=== PATIENT | male | born 1955 | race Caucasian/White ===

== ENCOUNTER 2024-02-09 09:10 | Emergency (ER) | payer BC ==
[~2024-02-09] VITALS: Ht 175.3 cm; Wt 95.7 kg
[2024-02-09 09:56] LABS: BASOPHILS % (AUTO) 0.2 % (0.0-2.0); EOSINOPHILS # (AUTO) 0.1 K/uL (0.0-0.7); HEMATOCRIT 44 % (39-51); HEMOGLOBIN 15.2 g/dL (13.5-17.5); LYMPHOCYTES # (AUTO) 1.4 K/uL (0.8-4.8); LYMPHOCYTES % (AUTO) 17.6 % (20.0-44.0); MEAN CORPUSCULAR HEMOGLOBIN 35 PG (26.0-33.0); MEAN CORPUSCULAR HGB CONC 35 g/dl (31.0-36.0); MEAN CORPUSCULAR VOLUME 100 fL (80-96); MONOCYTES # (AUTO) 0.7 K/uL (0.1-1.30); MONOCYTES % (AUTO) 9.1 % (2.0-12.0); NEUTROPHILS # (AUTO) 5.8 K/uL (1.8-8.9); NEUTROPHILS % (AUTO) 72.1 % (43.0-81.0); PLATELET COUNT (AUTO) 220 K/uL (150-450); RED BLOOD CELL COUNT(AUTO) 4.36 MIL/uL (4.5-6.0); RED CELL DISTRIBUTION WIDTH 12.7 % (11.5-15.0)
[2024-02-09 10:07] LABS: CALCIUM, SERUM 9.8 mg/dL (8.5-10.1); CREATININE 1.3 mg/dL (0.6-1.3); POTASSIUM 3.3 mmol/L (3.5-5.1)
[2024-02-09 10:13] LABS: ALBUMIN 3.5 g/dL (3.4-5.0); BILIRUBIN,DIRECT 0.2 mg/dL (0.0-0.2); BILIRUBIN,TOTAL 0.8 mg/dL (0.2-1.0); TOTAL PROTEIN, SERUM 7.2 g/dL (6.4-8.2)
[2024-02-09] MEDS ORDERED: LIDOCAINE 2% JEL UROJET 10 ML MM ONE (10:26)
[2024-02-09] MEDS: LIDOCAINE 2% JEL UROJET 10 ML MM ONE (10:41)
[2024-02-09 10:53] LABS: APPEARANCE,URINE SLIGHTLY CLOUDY (CLEAR); BILIRUBIN,URINE NEGATIVE (NEGATIVE); BLOOD, URINE 3+ Ery/uL (NEGATIVE); COLOR,URINE YELLOW (YELLOW); KETONES,URINE 1+ mg/dL (NEGATIVE); LEUKOCYTE ESTERASE ,URINE 1+ (NEGATIVE); NITRITE, URINE NEGATIVE (NEGATIVE); PH,URINE 6.5 (5.0-8.0); PROTEIN,URINE 1+ mg/dl (NEGATIVE); UGLUCOSE NEGATIVE (NEGATIVE)
[2024-02-09 10:56] LABS: ADD URINE CULTURE YES; BACTERIA,URINE Rare /HPF (None Seen); RBC,URINE 51-80 /HPF (0-2); SQUAMOUS EPITHELIAL CELL,UR Rare /HPF (None Seen); WBC,URINE 21-50 /HPF (0-3)
[2024-02-09] MEDS ORDERED: ONDANSETRON HCL/PF 4 MG/2 ML VIAL ONE (11:41)
[2024-02-09] MEDS ORDERED: CEFTRIAXONE 1GM BAG (ER ONLY) 50 ML IV ONE (11:41)
[2024-02-09] MEDS ORDERED: MORPHINE SULFATE INJ 4 MG/ML DISP.SYRIN ONE (11:42)
[2024-02-09] MEDS: ONDANSETRON HCL/PF 4 MG/2 ML VIAL IV ONE (11:42)
[2024-02-09] MEDS: MORPHINE SULFATE INJ 2 MG/ML DISP.SYRIN IV ONE (11:44)
[2024-02-09] MEDS: CEFTRIAXONE 1 G in IV D5W 50 ML IV ONE (11:57)
[2024-02-09] MEDS ORDERED: ONDA4TAB5 PO (12:17)
[2024-02-09] MEDS ORDERED: CEFD300C3 PO (12:17)
[2024-02-09] MEDS ORDERED: HYDR-4303 PO (12:17)
[2024-02-09 13:27] VITALS: BP 127/85; TEMP 97.9; O2SAT 98
== END 2024-02-09 13:28 | disposition home or self-care (01) ==
LOC: ER 09:18
DX: N39.0 Urinary tract infection, site not specified (principal); N40.1 Benign prostatic hyperplasia with lower urinary tract symptoms; E87.1 Hypo-osmolality and hyponatremia; E87.6 Hypokalemia; I10 Essential (primary) hypertension; R33.8 Other retention of urine
CPT/HCPCS: 99285; 74176; 96365; 96375; 51702; 85025; 80048; 87086; 83690; 80076; 81001; 36415; J3490; J2270; J0696 ×2; J2405; J7060; J7030

== ENCOUNTER 2024-03-03 00:19 | Emergency (ER) | payer BC ==
[~2024-03-03] VITALS: Ht 175.3 cm; Wt 90.7 kg
[~2024-03-03 00:19] MED LIST: CEFD300C3 PO; HYDR-4303 PO; ONDA4TAB5 PO
[2024-03-03 00:58] LABS: APPEARANCE,URINE CLOUDY (CLEAR); BILIRUBIN,URINE NEGATIVE (NEGATIVE); BLOOD, URINE 3+ Ery/uL (NEGATIVE); COLOR,URINE YELLOW (YELLOW); KETONES,URINE NEGATIVE (NEGATIVE); LEUKOCYTE ESTERASE ,URINE 2+ (NEGATIVE); NITRITE, URINE POSITIVE (NEGATIVE); PROTEIN,URINE 1+ mg/dl (NEGATIVE); UGLUCOSE NEGATIVE (NEGATIVE); UROBILINOGEN,URINE 0.2 EU/dL (0.2)
[2024-03-03 01:13] LABS: ADD URINE CULTURE YES; BACTERIA,URINE 3+ /HPF (None Seen); MUCUS,URINE Moderate /LPF (None Seen); RBC,URINE 21-50 /HPF (0-2)
[2024-03-03] MEDS ORDERED: CIPR500T5 PO (01:42)
[2024-03-03] MEDS ORDERED: CIPROFLOXACIN HCL 500 MG TABLET ONE (01:46)
[2024-03-03] MEDS ORDERED: CIPROFLOXACIN HCL 500 MG TABLET PO ONE (02:00)
[2024-03-03 02:02] VITALS: BP 127/66; TEMP 98.2; O2SAT 98
== END 2024-03-03 02:04 | disposition home or self-care (01) ==
LOC: ER 00:30
DX: N39.0 Urinary tract infection, site not specified (principal); E78.00 Pure hypercholesterolemia, unspecified; I10 Essential (primary) hypertension; Z60.2 Problems related to living alone
CPT/HCPCS: 81001

== ENCOUNTER 2024-03-03 06:54 | Emergency (ER) | payer BC ==
[~2024-03-03] VITALS: Ht 175.3 cm; Wt 90.7 kg
[~2024-03-03 06:54] MED LIST changes: +CIPR500T5 PO
[2024-03-03 09:03] VITALS: BP 132/86; TEMP 98.8; O2SAT 18
== END 2024-03-03 09:05 | disposition home or self-care (01) ==
LOC: ER 06:58
DX: T83.028A Displacement of other urinary catheter, initial encounter (principal); E78.00 Pure hypercholesterolemia, unspecified; I10 Essential (primary) hypertension; N39.0 Urinary tract infection, site not specified; N40.1 Benign prostatic hyperplasia with lower urinary tract symptoms; R33.8 Other retention of urine; Z60.2 Problems related to living alone; Z87.440 Personal history of urinary (tract) infections; Y84.8 Other medical procedures as the cause of abnormal reaction of the patient, or of later complication, without mention of misadventure at the time of the procedure; Y92.89 Other specified places as the place of occurrence of the external cause

== ENCOUNTER 2024-03-07 17:16 | Emergency (ER) | payer BC ==
[~2024-03-07] VITALS: Ht 175.3 cm; Wt 90.7 kg
[2024-03-07 19:37] VITALS: BP 122/78; TEMP 98.8; O2SAT 100
== END 2024-03-07 19:38 | disposition home or self-care (01) ==
LOC: ER 17:21
DX: T83.098A Other mechanical complication of other urinary catheter, initial encounter (principal); I10 Essential (primary) hypertension; E78.00 Pure hypercholesterolemia, unspecified; Z79.899 Other long term (current) drug therapy; Z60.2 Problems related to living alone; X58.XXXA Exposure to other specified factors, initial encounter; Y93.89 Activity, other specified; Y92.89 Other specified places as the place of occurrence of the external cause; Y99.8 Other external cause status

== ENCOUNTER 2024-03-07 21:52 | Emergency (ER) | payer BC ==
[~2024-03-07] VITALS: Ht 175.3 cm; Wt 90.7 kg
[2024-03-07] MEDS ORDERED: LIDOCAINE 2% JEL UROJET 10 ML MM ONE (22:35)
[2024-03-07 22:51] VITALS: BP 120/79; TEMP 99.5; O2SAT 98
== END 2024-03-08 00:42 | disposition home or self-care (01) ==
LOC: ER 21:54
DX: T83.098A Other mechanical complication of other urinary catheter, initial encounter (principal); I10 Essential (primary) hypertension; E78.00 Pure hypercholesterolemia, unspecified; Z79.899 Other long term (current) drug therapy; Z60.2 Problems related to living alone; X58.XXXA Exposure to other specified factors, initial encounter; Y93.89 Activity, other specified; Y92.89 Other specified places as the place of occurrence of the external cause; Y99.8 Other external cause status
CPT/HCPCS: 99284; 51702; J3490

== ENCOUNTER 2024-03-08 14:38 | Emergency (ER) | payer BC ==
[~2024-03-08] VITALS: Ht 172.7 cm; Wt 90.7 kg
[2024-03-08 14:57] VITALS: BP 134/69; TEMP 97.9; O2SAT 99
[2024-03-08] MEDS ORDERED: LIDOCAINE 2% JEL UROJET 10 ML MM ONE (15:46)
[2024-03-08] MEDS: LIDOCAINE 2% JEL UROJET 10 ML MM ONE (15:54)
== END 2024-03-08 16:18 | disposition home or self-care (01) ==
LOC: ER 14:39
DX: T83.098A Other mechanical complication of other urinary catheter, initial encounter (principal); I10 Essential (primary) hypertension; E78.00 Pure hypercholesterolemia, unspecified; Z98.890 Other specified postprocedural states; Z79.899 Other long term (current) drug therapy; Z60.2 Problems related to living alone; Y92.89 Other specified places as the place of occurrence of the external cause
CPT/HCPCS: 99284; 51702; J3490

== ENCOUNTER 2024-03-11 20:04 | Emergency (ER) | payer BC ==
[~2024-03-11] VITALS: Ht 175.3 cm; Wt 90.7 kg
[2024-03-11 21:23] VITALS: BP 120/67; TEMP 98.5; O2SAT 97
[2024-03-11] MEDS ORDERED: LIDOCAINE 2% JEL UROJET 10 ML MM ONE (21:42)
[2024-03-11 22:02] LABS: APPEARANCE,URINE SLIGHTLY CLOUDY (CLEAR); BILIRUBIN,URINE NEGATIVE (NEGATIVE); BLOOD, URINE NEGATIVE Ery/uL (NEGATIVE); COLOR,URINE YELLOW (YELLOW); KETONES,URINE NEGATIVE (NEGATIVE); LEUKOCYTE ESTERASE ,URINE 1+ (NEGATIVE); NITRITE, URINE POSITIVE (NEGATIVE); PROTEIN,URINE NEGATIVE (NEGATIVE); UGLUCOSE NEGATIVE (NEGATIVE); UROBILINOGEN,URINE 0.2 EU/dL (0.2)
[2024-03-11] MEDS ORDERED: CIPR-262 PO (22:11)
[2024-03-11 22:13] LABS: ADD URINE CULTURE YES; BACTERIA,URINE 1+ /HPF (None Seen); WBC,URINE 21-50 /HPF (0-3)
[2024-03-11] MEDS ORDERED: CIPROFLOXACIN HCL 500 MG TABLET ONE (22:14)
[2024-03-11 22:17] LABS: SQUAMOUS EPITHELIAL CELL,UR 0-2 /HPF (None Seen)
[2024-03-11] MEDS: CIPROFLOXACIN HCL 500 MG TABLET PO ONE (22:23)
== END 2024-03-11 22:30 | disposition home or self-care (01) ==
LOC: ER 20:13
DX: T83.021A Displacement of indwelling urethral catheter, initial encounter (principal); N39.0 Urinary tract infection, site not specified; I10 Essential (primary) hypertension; E78.00 Pure hypercholesterolemia, unspecified; Z60.2 Problems related to living alone; Y84.8 Other medical procedures as the cause of abnormal reaction of the patient, or of later complication, without mention of misadventure at the time of the procedure; Y92.89 Other specified places as the place of occurrence of the external cause
CPT/HCPCS: 99284; 51702; 81001; J3490

== ENCOUNTER 2024-03-12 06:21 | Emergency (ER) | payer BC ==
[~2024-03-12] VITALS: Ht 175.3 cm; Wt 90.7 kg
[~2024-03-12 06:21] MED LIST changes: +CIPR-262 PO
[2024-03-12 06:57] VITALS: BP 119/71; TEMP 98
[2024-03-12] MEDS ORDERED: LIDOCAINE 2% JEL UROJET 10 ML MM ONE (07:21)
[2024-03-12 07:56] VITALS: O2SAT 98
== END 2024-03-12 07:58 | disposition home or self-care (01) ==
LOC: ER 06:28
DX: T83.098A Other mechanical complication of other urinary catheter, initial encounter (principal); E78.00 Pure hypercholesterolemia, unspecified; I10 Essential (primary) hypertension; Z79.899 Other long term (current) drug therapy; Z60.2 Problems related to living alone; Y92.89 Other specified places as the place of occurrence of the external cause
CPT/HCPCS: 99284; 51702; J3490